=== PATIENT | female | born 1960 | race Caucasian/White ===

== ENCOUNTER 2018-03-19 19:09 | Emergency (ER) | payer OTHER ==
[2018-03-19 19:28] VITALS: BP 148/98
--- NOTE | 2018-03-19 19:41 | UC ---
Lower Extremity/Ankle HPI - HPI Summary HPI Summary: This patient is a 57 year old F presenting to [facility] with a chief complaint of R foot pain since 03/15/18. Patient reports she tripped over a chair leg. She reports the bruise that is there is fading but it is painful to ambulate. The CC is described as not improving since onset. The patient rates the pain 8/10 in severity. Symptoms aggravated by ambulation. Symptoms alleviated by nothing. 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 Onset/Duration: Sudden Onset, Lasting Days, Still Present Severity Initially: Severe Severity Currently: Severe Pain Intensity: 8 Pain Scale Used: 0-10 Numeric Aggravating Factor(s): Ambulation Alleviating Factor(s): Nothing Able to Bear Weight: Yes - able to ambulate but with pain - Allergies/Home Medications Allergies/Adverse Reactions: Allergies Allergy/AdvReac Type Severity Reaction Status Date / Time brown coating on Advil Allergy Eyes Uncoded 03/19/18 19:31 Itchy/Swollen/Red/Watery Home Medications: Home Medications NK [No Home Medications Reported] 03/19/18 [History Confirmed 03/19/18] PMH/Surg Hx/FS Hx/Imm Hx Endocrine History: Other Other Endocrine History: No DM Cancer History: Other Other Cancer History: No breast CA - Surgical History Surgical History: None - Family History Known Family History: Negative: Cardiac Disease, Hypertension, Diabetes - Social History Alcohol Use: Occasionally Substance Use Type: None Smoking Status (MU): Never Smoked Tobacco Review of Systems Skin: Bruising Musculoskeletal: Other: - R foot pain All Other Systems Reviewed And Are Negative: Yes Physical Exam - Summary Physical Exam Summary: VITAL SIGNS: Reviewed. GENERAL: Patient is a well-developed and nourished FEMALE who is lying comfortable in the stretcher. Patient is not in any acute respiratory distress. HEAD AND FACE: Normocephalic EYES: PERRLA, EOMI x 2. EARS: Hearing grossly intact. MOUTH: Oropharynx within normal limits. NECK: Supple, trachea is midline, no adenopathy, no JVD, no carotid bruit. CHEST: Symmetric, no tenderness at palpation LUNGS: Clear to auscultation bilaterally. No wheezing or crackles. CVS: Regular rate and rhythm, S1 and S2 present, no murmurs or gallops appreciated. ABDOMEN: Soft, non-tender. Bowel sounds are normal. No abdominal abnormal pulsations. EXTREMITIES: Full ROM in all major joints, no edema, no cyanosis or clubbing. Bruising in 2nd toe of the R foot. The patient is ambulating. NEURO: Alert and oriented x 3. No acute neurological deficits. Speech is normal and follows commands. SKIN: Dry and warm. Bruising in 2nd toe of the R foot. Triage Information Reviewed: Yes Vital Signs: Initial Vital Signs Temp 99.6 F 03/19/18 19:21 Pulse 85 03/19/18 19:21 Resp 16 03/19/18 19:21 BP 148/98 03/19/18 19:21 Pulse Ox 99 03/19/18 19:21 Vital Signs Reviewed: Yes Diagnostics - Radiology R foot XR Radiology Interpretation Completed By: ED Physician - No acute fracture. Pending radiologist official interpretation. Lower Extremity Course/Dx - Course Course Of Treatment: X-ray of the right foot impression: No acute fracture dislocation. The patient is ambulating with minimal discomfort. Patient was discharged home with follow-up with PCP. She was instructed that the x-ray will be reviewed by radiology and if there is any changes she will be call back. She will be taking ibuprofen or Tylenol for the pain. She is hemodynamically stable alert oriented 3. - Differential Dx/Diagnosis Provider Diagnoses: foot pain Discharge - Sign-Out/Discharge Documenting (check all that apply): Patient Departure All imaging exams completed and their final reports reviewed: Yes - Discharge Plan Condition: Stable Disposition: HOME Patient Education Materials: Arthralgia (ED) Referrals: Amanda Reyes MD [Primary Care Provider] - Additional Instructions: Take Acetaminophen or ibuprofen for pain or fever Increase your fluid intake Return to the or go to the emergency department if symptoms worsen Follow-up with primary care physician in next 2-3 days FOLLOW UP WITH YOUR PRIMARY CARE PROVIDER WITHIN ONE WEEK FOR HIGH BLOOD PRESSURE NOTED TODAY. - Billing Disposition and Condition Condition: STABLE Disposition: Home - Attestation Statements Document Initiated by Scribe: Yes Documenting Scribe: Ariel Prince Provider For Whom Scribe is Documenting (Include Credential): Campos Chisholm MD Scribe Attestation: Ariel Lion, scribed for Campos Chisholm MD on 03/19/18 at 2040. Scribe Documentation Reviewed: Yes Provider Attestation: The documentation as recorded by the scribe, Ariel Prince accurately reflects the service I personally performed and the decisions made by me, Campos Chisholm MD
--- NOTE | 2018-03-20 08:00 | RAD ---
HISTORY: foot pain, trauma COMPARISONS: None VIEWS: 3 , Frontal, lateral, and oblique views of the right foot FINDINGS: BONE DENSITY: Normal. BONES: There is no displaced fracture. There are calcaneal enthesophytes. JOINTS: There is moderate to advanced osteoarthritis of the first MTP joint and midfoot. ALIGNMENT: There is hallux valgus. SOFT TISSUES: Unremarkable. OTHER FINDINGS: None. IMPRESSION: OSTEOARTHRITIS. NO ACUTE OSSEOUS INJURY. IF SYMPTOMS PERSIST, RECOMMEND REPEAT IMAGING. R0
== END 2018-03-19 20:46 | disposition home or self-care (01) ==
LOC: UCEAST 19:09
DX: M79.671 Pain in right foot (principal)
CPT/HCPCS: 99212; G0463

== ENCOUNTER 2018-09-21 05:34 | Observation (INO) | payer OTHER ==
--- NOTE | 2018-09-14 12:37 | HP ---
HISTORY AND PHYSICAL: DATE OF ADMISSION/SURGERY: 09/21/18 DATE OF OFFICE VISIT: 09/13/18 SURGEON: Alka Nation MD* (dictated by JUAREZ Diop). PROCEDURE: Right total knee arthroplasty. CHIEF COMPLAINT: Right knee pain. HISTORY OF PRESENT ILLNESS: Ms. Prince is a 57-year-old female with end-stage osteoarthritis of the right knee. She has failed conservative treatment and elected to proceed with a right total knee arthroplasty. PAST MEDICAL HISTORY: Denies. PAST SURGICAL HISTORY: Denies. MEDICATIONS: Vitamin D3. ALLERGIES: No known drug allergies. FAMILY HISTORY: Hypertension. SOCIAL HISTORY: A 57-year-old, lives with her spouse. Does not smoke or use drugs or alcohol. REVIEW OF SYSTEMS: A complete 14-point review of systems was reviewed with the patient. It was all negative and noncontributory. She denies a history of DVT , PE, hepatitis, HIV, or anesthesia problems. PHYSICAL EXAMINATION GENERAL: She is well developed, well nourished, in no acute distress. VITAL SIGNS: She stands 64 inches tall, weighs 183 pounds. Blood pressure is 118/78, heart rate is 68. HEENT: Normocephalic, atraumatic. NECK: Supple, no palpable lymph nodes. PULMONARY: Lungs are clear to auscultation bilaterally. CARDIAC: Regular rate and rhythm. Strong S1, S2. ABDOMEN: Soft, nontender, nondistended. NEUROLOGICAL: She is alert and oriented x3. MUSCULOSKELETAL: Right lower extremity, the skin is intact. There are no open wounds or abrasions. Some tenderness over the medial and lateral joint lines. There is some moderate joint effusion. Range of motion is 15 to 120 degrees of flexion with patellofemoral crepitus. She has 2+ dorsalis pedis pulse. She is able to dorsiflex and plantarflex and has intact sensation. ASSESSMENT AND PLAN: Ms. Prince is a 57-year-old female with end-stage osteoarthritis of the right knee. She has failed conservative treatment and elected to proceed with a right total knee arthroplasty. The surgery is scheduled for 09/21/[address] Nation discussed the risks and benefits of the surgery at today's visit and all of her questions were answered. She will follow up with Dr. Nation 2 weeks after the surgery. JUAREZ DIOP [id number]/[facility] #: [id number] N[facility] MEMORIAL HOSPITALLalita
[~2018-09-21 05:34] MED LIST: Buffered Lidocaine 1% SYRIN* 1 ML/SYRINGE INTRADERM ONE; Tranexamic Acid 1,000 MG in NS 0.9% 50 ML* (outpatient use) IV SCH
[2018-09-21] MEDS ORDERED: Famotidine IV* 10 MG/ML 2 ML (20 mg) IV ONE (06:00)
[2018-09-21] MEDS ORDERED: Lactated Ringers 1000 ML Bag* 1,000 ML IV SCH (06:00)
[2018-09-21] MEDS ORDERED: Acetaminophen IV 1GM/100ML * 1,000 MG/100 ML VIAL IVPB ONE (06:00)
[2018-09-21] MEDS ORDERED: celeCOXIB CAP* 200 MG PO ONE (06:00)
[2018-09-21] MEDS ORDERED: Dexamethasone IV* 4 MG/ML 1 ML (4 MG) IV SLOW PU ONE (06:00)
[2018-09-21] MEDS ORDERED: Gabapentin CAP(*) 300 MG PO ONE (06:00)
[2018-09-21] MEDS ORDERED: Dexamethasone IV* 4 MG/ML 1 ML (4 MG) ONE (06:10)
[2018-09-21] MEDS ORDERED: Famotidine IV* 10 MG/ML 2 ML (20 mg) ONE (06:11)
[2018-09-21] MEDS ORDERED: celeCOXIB CAP* 100 MG ONE (06:11)
[2018-09-21] MEDS ORDERED: ceFAZolin 2 GM in NS PREMIX(*) 2 GM/100 ML BAG IVPB ONE (06:11)
[2018-09-21] MEDS ORDERED: Buffered Lidocaine 1% SYRIN* 1 ML/SYRINGE INTRADERM ONE (06:11)
[2018-09-21] MEDS ORDERED: Gabapentin CAP(*) 300 MG ONE (06:11)
[2018-09-21] MEDS ORDERED: Acetaminophen IV 1GM/100ML * 100 ML ONE ×2 (06:14→10:03)
[2018-09-21] MEDS ORDERED: ROPIVACAINE 5 MG/ML 30 ML BTL (0.5%) ONE ×2 (06:59→07:06)
[2018-09-21] MEDS ORDERED: Bupivacaine 0.5% SDV PF* 30ML VIAL ONE (07:09)
[2018-09-21] MEDS ORDERED: Phenylephrine 10 MG/ML VIAL* 1 ML VIAL ONE (07:09)
[2018-09-21] MEDS ORDERED: Midazolam* 1 MG/ML 5 ML VIAL (5 MG) ONE ×3 (07:11→10:52)
[2018-09-21] MEDS ORDERED: fentaNYL* 50 MCG/ML 2 ML VIAL (100 MCG VIAL) ONE (07:11)
[2018-09-21] MEDS ORDERED: KETAMINE HCL* 50 MG/ML 10 ML VIAL ONE (07:12)
[2018-09-21] MEDS ORDERED: fentaNYL* 50 MCG/ML 2 ML VIAL (100 MCG VIAL) IV PRN (08:12)
[2018-09-21] MEDS ORDERED: DiMENhydriNATE IV* 50 MG/ML VIAL IV PUSH PRN (08:12)
[2018-09-21] MEDS ORDERED: Ondansetron INJ* 2 MG/ML VIAL IV PRN ×2 (08:12→09:51)
[2018-09-21] MEDS ORDERED: Naloxone* 0.4 MG/ML 1 ML VIAL IV PRN (08:12)
[2018-09-21] MEDS ORDERED: HYDROmorphone INJ1* 1 MG/ML SYRINGE IV PRN (08:12)
[2018-09-21] MEDS ORDERED: Scopolamine 1.5 mg* PATCH TRANSDERM PRN (08:12)
[2018-09-21] MEDS ORDERED: Polyethylene Glycol 3350* 17 GM PACKET PO PRN (09:51)
[2018-09-21] MEDS ORDERED: Ondansetron TAB* 4 MG PO PRN (09:51)
[2018-09-21] MEDS ORDERED: oxyCODONE/Acetamin 5/325 MG* TAB PO PRN (09:51)
[2018-09-21] MEDS ORDERED: Morphine INJ* 2 MG/ML 1 ML SYRINGE (TWO MG - NEW SYRINGE VERSION) IV PRN (09:51)
[2018-09-21] MEDS ORDERED: Magnesium Hydroxide LIQ* 30 ML UDC PO PRN (09:51)
[2018-09-21] MEDS ORDERED: traMADol TAB* 50 MG PO PRN (09:51)
[2018-09-21] MEDS ORDERED: diPHENhydraMINE IV* 50 MG/ML 1 ml VIAL (BENADRYL) IV PRN (09:51)
[2018-09-21] MEDS ORDERED: Bisacodyl SUPP* 10 MG SUPP PR PRN (09:51)
--- NOTE | 2018-09-21 13:14 | PN ---
Progress Note - Progress Note Date of Service: 09/21/18 Note: patient resting comfortably with no complaints; able to wiggle toes/plantar flex , 2_+ DP pulse and intact sensation, dressing c/d/i
[2018-09-21] MEDS ORDERED: oxyCODONE TAB* 5 MG TAB ONE (14:03)
[2018-09-21] MEDS: oxyCODONE TAB* 5 MG TAB PO PRN ×2 (14:06→18:12)
[2018-09-21] MEDS: Lactated Ringers 1000 ML Bag* 1,000 ML IV SCH (14:41)
--- NOTE | 2018-09-21 16:55 | OP ---
Operative Report - Blank - Operative Report Date of Operation: 09/21/18 Note: NOEL HRUD 1960 Date of Surgery: 09/21/18 Alka Nation MD [employer] Architect: Alexandra PIZARRO did help throughout the procedure with preparation of the knee, wound retraction, manipulation of the knee, and wound closure. Anesthesiologist: Patricio JANG Anesthesia Type: Spinal Preoperative Diagnosis: Right severe degenerative osteoarthritis of the knee Postoperative Diagnosis: As above Procedure Performed: Right Total Knee Arthroplasty Tourniquet time: 44 minutes Complications: None Specimen: Bone and cartilage from the right knee joint sent to pathology. Hardware Used: Cemented [employer]hew total knee hardware was used - For the femur a size 6 narrow oxinium legion posterior stabilized femoral component, for the tibia a size 5 right ronda II tibial baseplate, for the insert a size 9 mm 5-6 posterior stabilized articular polyethylene insert, and for the patella a size 32 3-peg all poly patella. Brief History/Indication: NOEL HURD was known in clinic and had a history of severe right knee pain and swelling. She failed conservative treatment with anti -inflammatories, pain pills, intra-articular injections and physical therapy. She elected to undergo right total knee arthroplasty due to continued pain and decreased quality of life. Radiographs showed severe end stage osteoarthritis of the knee with bone on bone contact. Informed consent was obtained from the patient. She understood the risks of surgery included but were not limited to: bleeding, infection, damage to nearby structures, intraoperative fracture, nerve palsy, failure of the hardware, early loosening, knee stiffness or loss of motion, anesthesia complications, stroke, heart attack, blood clot and . She wished to proceed. Intra-Operative Findings: Intraoperatively the patient was noted to have severe loss of cartilage in all 3 compartments of the knee. Description of the Procedure: NOEL HURD was identified in the preanesthesia unit. Her right knee was marked as the correct operative side. Informed consent was signed and placed in the chart. The patient was taken to the operating room and placed under anesthesia without complication. A degroot catheter was placed. A tourniquet was placed on the right thigh. The right lower extremity was prepped and draped in the usual sterile fashion. Preoperative time-out was made to correctly identify the patient, side and site. Appropriate intraoperative antibiotics were given within one hour of incision. Tourniquet was inflated. A midline incision was made and carried sharply down to the extensor mechanism. A new 10 blade was used to make a standard medial parapatellar arthrotomy. The patella was subluxed laterally. Electrocautery was used to dissect soft tissue off the superomedial tibia to the midsagittal plane. The knee was flexed up. The anterior horn of the lateral meniscus and the ACL were sharply incised. A drill was used to enter the distal femur. The intramedullary distal femoral cutting guide was pinned on the distal femur. The oscillating saw was used to make the distal femoral cut. The external rotation guide was pinned on the distal femur and the distal femur was sized to a size 6. The size 6 multi-cutting jig was pinned on the distal femur. The oscillating saw was used to make the appropriate 4 chamfer cuts. Next the PCL was completely released. The extramedullary tibial cutting guide was pinned on the proximal tibia and the oscillating saw was used to make the proximal tibial cut perpendicular to the mechanical axis of the tibia. The bone was carefully removed. The knee was brought out into full extension. The spacer block was placed and had excellent fit with the knee in full extension. The medial and lateral ligaments were well balanced. The flexion and extension gaps were well balanced. The knee was flexed up. Lamina floor layer tile was placed both medially and laterally. Any remaining meniscus was removed with electrocautery. Curved osteotome was used to remove any posterior osteophytes. The tibial tray and drop fabiola were placed and confirmed a satisfactory tibial cut. The size 6 right narrow femoral trial was impacted onto the distal femur. This trial had excellent fit and stability. The box for the posterior stabilized implant was prepared using a box cut osteotome and a reamer. Next a tibial tray trial and 9 mm insert trial was placed. The knee was taken through a range of motion and had full extension to 130 degrees of flexion. Patellofemoral tracking was satisfactory. The patella was inverted and sized to a size 32. Three peg holes were drilled through the size 32 drill guide. The trial patella was placed and the knee was taken through a range of motion. There was satisfactory patellofemoral tracking. All trials were removed. The tibia was subluxed anteriorly and sized to a size 5. The proximal tibial was prepared with a size 5 keel punch. All bony cut surfaces were irrigated with sterile saline and dried. Final implants were cemented into place starting with the tibia, followed by the femur, and last the patella. A 9 mm insert trial was placed and the knee was brought into full extension. Tourniquet was turned down and the knee was copiously irrigated with sterile saline. Electrocautery was used to obtain meticulous hemostasis. Once the cement had fully cured, the insert trial was removed. Any excess cement was removed from around the hardware and capsule. Final insert chosen was a 9 mm posterior stabilized Ronda II articular insert size 5-6. Stability of the insert was checked and noted to be stable. The extensor mechanism was closed using number 1 vicryls. The rest of the incision was closed in a layered fashion using 0 and 2-0 vicryls. The skin was closed using 3-0 nylon suture. Sterile xeroform, 4x4s and webril were used to cover the incision. Conner wrap and cold pack were used to cover the dressings. The patients anesthesia was reversed without difficulty. She was taken to the PACU in stable condition. Intended weight-bearing will be as tolerated.
[2018-09-21] MEDS: ceFAZolin 1 GM ADVAN(*) 1 GM in NS 0.9% 50 ML* 50 ML IVPB SCH (17:25)
[2018-09-21] MEDS: oxyCODONE/Acetamin 5/325 MG* TAB PO PRN (20:59)
[2018-09-21] MEDS: Cyclobenzaprine TAB* 10 MG PO PRN (21:00)
[2018-09-21] MEDS: Docusate CAP* 100 MG PO SCH ×2 (21:04→21:07)
[2018-09-21] MEDS: Magnesium Hydroxide LIQ* 30 ML UDC PO SCH (21:05)
[2018-09-21] MEDS: Acetaminophen TAB* 325 MG PO SCH (22:52)
[2018-09-22] MEDS: oxyCODONE TAB* 5 MG TAB PO PRN ×3 (00:24→14:49)
[2018-09-22] MEDS: Lactated Ringers 1000 ML Bag* 1,000 ML IV SCH (00:25)
[2018-09-22] MEDS: ceFAZolin 1 GM ADVAN(*) 1 GM in NS 0.9% 50 ML* 50 ML IVPB SCH ×2 (00:28→07:31)
[2018-09-22] MEDS: oxyCODONE/Acetamin 5/325 MG* TAB PO PRN ×2 (04:08→11:23)
[2018-09-22] MEDS: Cyclobenzaprine TAB* 10 MG PO PRN (04:09)
[2018-09-22] MEDS: Acetaminophen TAB* 325 MG PO SCH ×2 (06:36→13:25)
[2018-09-22 07:04] LABS: Hematocrit 40 % (33-41); Hemoglobin 13.7 g/dL (12.0-16.0); Mean Platelet Volume 8.4 fL (7.4-10.4); Platelet Count 186 10^3/uL (150-450)
[2018-09-22 07:19] LABS: BUN/Creatinine Ratio 12.1 (8-20); EGFR African American 112.1 (>60); EGFR Non-African American 92.6 (>60); Potassium 3.8 mmol/L (3.5-5.0)
[2018-09-22] MEDS: Magnesium Hydroxide LIQ* 30 ML UDC PO SCH (08:40)
[2018-09-22] MEDS: Docusate CAP* 100 MG PO SCH (08:42)
[2018-09-22] MEDS ORDERED: Apixaban* 2.5 MG TAB PO SCH (09:00)
--- NOTE | 2018-09-22 10:34 | PN ---
Progress Note - Progress Note Date of Service: 09/22/18 SOAP: Subjective: []Pt seen and examined at bedside. She feels very well and desires DC home. Denies CP, SOB, dizziness, nausea. Objective: []Gereral: Well appearing, NAD RLE: Right knee dressing changed, incision CDI without erythema or discharge, thigh is soft, DP2+, DF/PF intact Calves supple and nontender without erythema, edema or palpable cords Assessment: []POD 1 sp RTK Plan: []WBAT PT/OT eliquis 2.5 mg po BID for 30 days post op Anticipate DC home today as long as patient meets goals with PT Vital Signs Temp 98.9 F 09/22/18 07:20 Pulse 76 09/22/18 07:20 Resp 18 09/22/18 08:00 BP 117/73 09/22/18 07:20 Pulse Ox 98 09/22/18 08:00 Intake & Output 09/21/18 09/22/18 09/22/18 18:59 06:59 18:59 Intake Total 2655 2009 320 Output Total 1999 2099 Balance 655 -90 320 Intake: IV Fluids 2200 1060 ABX - CEFAZOLIN 110 LR 2100 950 NS 100ML, Cefazolin 2G 100 IVPB 55 ABX - CEFAZOLIN 55 Oral 400 950 320 Output: See 1999 2100 Other: # Bowel Movements 0 Laboratory Last Values Hgb 13.7 g/dL (12.0-16.0) 09/22/18 06:27 Hct 40 % (33-41) 09/22/18 06:27 Plt Count 186 10^3/uL (150-450) 09/22/18 06:27 MPV 8.4 fL (7.4-10.4) 09/22/18 06:27 Sodium 138 mmol/L (135-145) 09/22/18 06:27 Potassium 3.8 mmol/L (3.5-5.0) 09/22/18 06:27 Chloride 104 mmol/L (101-111) 09/22/18 06:27 Carbon Dioxide 30 mmol/L (22-32) 09/22/18 06:27 Anion Gap 4 mmol/L (2-11) 09/22/18 06:27 BUN 8 mg/dL (6-24) 09/22/18 06:27 Creatinine 0.66 mg/dL (0.51-0.95) 09/22/18 06:27 Est GFR ( Amer) 112.1 (>60) 09/22/18 06:27 Est GFR (Non-Af Amer) 92.6 (>60) 09/22/18 06:27 BUN/Creatinine Ratio 12.1 (8-20) 09/22/18 06:27 Glucose 135 mg/dL (70-100) H 09/22/18 06:27 Calcium 9.0 mg/dL (8.6-10.3) 09/22/18 06:27
--- NOTE | 2018-09-22 10:59 | DS ---
Orthopedic Discharge Summary - Discharge Summary Date of Admission:09/21/18 Date of Discharge: 09/22/18 Date of Surgery: 09/21/18 Attending Orthopedic Provider: Dr Nation Pre-operative Diagnosis: right knee osteoarthritis Operative Procedure: right total knee arthroplasty Condition of Patient: stable History: NOEL HURD is a 57 year old F with years of increasingly severe right knee pain. Patient has failed conservative management and has elected to undergo a right total knee replacement Hospital Course: NOEL was admitted to [facility] on 09/21/18. Patient underwent a right total knee replacement without complication followed by a brief recovery in PACU and transfer to the Short Stay Surgical Unit in stable condition. Our hospitalist service, physical therapy and occupational therapy also participated in this patients care. Post-op day 1: patient was alert and in no acute distress. Dressing and incision was clean, dry and intact. Operative extremity dorsiflexion and plantarflexion intact, sensation intact to light touch distally, DP2+. Physical therapy goals were met. Stable for DC home. Discharge Medications Medication Instructions Recorded Confirmed Type Acetaminophen TAB* [Tylenol TAB*] 975 mg PO Q8HR tab 09/22/18 Rx Apixaban* [Eliquis*] 2.5 mg PO BID #60 tab 09/22/18 Rx Docusate CAP* [Colace Cap*] 100 mg PO BID #90 cap 09/22/18 Rx oxyCODONE/Acetamin 5/325 MG* 2 tab PO Q4H PRN #70 tab MDD 10 09/22/18 Rx [Percocet 5/325 TAB*] Discharge to home in stable condition 09/22/18 Discharge Instructions following Orthopedic Surgery: Activity: * Weight Bearing as tolerated * Continue physical therapy and occupational therapy exercises as shown * start outpatient PT Wound care: * OK to shower on post-op day 3, no bathing, swimming, or submerging wound. * Use gentle soap, pat dry. Cover with gauze, RAMOS wrap or tape. Call Orthopedic office for: * Increased drainage * Redness * Increased pain * Fever Go to ER with shortness of breath or chest pain. Diet: * Regular diet * Increase fluids and fiber to prevent constipation. * Continue to use stool softeners, call office if no bowel motion within 48 hours. Medications See Home Medication List in your packet for medications that you should take after discharge. DVT Prophylaxis: Eliquis Dosin.5 mg, 1 tab every 12 hours x 30 days. This medication increases bleeding tendency Pain Control: Percocet Dosin/325 mg 1-2 tabs by mouth every 4-6 hours as needed for pain. Maximum of 10 tabs per day. Wean off as soon as pain allows. hold for sedation Please note that Percocet contains Tylenol (acetaminophen). Maximum daily dose of Tylenol is 4000 mg from all sources. Antibiotics are required prior to any dental work. FOLLOW UP: Follow up with [Rios] Within 10-14 days, call for appointment Please call our office with any questions or concerns ([phone])
[2018-09-22 12:28] VITALS: BP 153/78
== END 2018-09-22 15:30 | disposition home or self-care (01) ==
LOC: OR 05:34 → EDSTATUS 07:30 → SSU 09:51
PROVIDERS: ADMIT Orthopaedic Surgery Adult Reconstructive Orthopaedic Surgery; ATTEND Orthopaedic Surgery Adult Reconstructive Orthopaedic Surgery
DX: M17.11 Unilateral primary osteoarthritis, right knee (principal)
CPT/HCPCS: 36415; 80048; 85014; 85018; 85049; 88305; 88311; 96374; 96375; A9270-GY; C1776; G0378; J0690; J1100; J2250; J2795; J3010; J3490

== ENCOUNTER 2019-09-19 17:20 | Emergency (ER) | payer OTHER ==
--- OUTSIDE RECORDS SUMMARY | 2019-09-19 17:25 | XMS REPORT | Continuity of Care Document ---
:1960 External Reference #:[id number] Author Name Amanda Jeff MD (transmitted by agent of provider Nikky Pisano) Address [address] , [place] [address] Care Team Providers Name Role Phone Amanda Jeff MD - Family Medicine Care Team Information Biology Manager Problems Active Problems Provider Date Localized, primary osteoarthritis Alka Nation M.D. Onset: 05/18/2019 Acquired genu valgum Alka Nation M.D. Onset: 05/18/2019 History of total knee arthroplasty Onset: 02/10/2019 Postmenopausal bleeding Onset: 10/30/2017 Note: LMP 05/15, 4 days of VB 2017, had negative endometrial biopsy Dr Prince 2017. No bleeding since. Genetic counseling Onset: 08/03/2017 Gluten sensitivity Onset: 06/09/2017 Obesity Onset: 01/28/2017 Metabolic syndrome X Onset: 11/10/2016 Seasonal affective disorder Onset: 10/07/2016 Hereditary essential tremor Onset: 10/07/2016 Vitamin D deficiency Onset: 01/31/2016 Hyperlipidemia Onset: 06/05/2015 Osteoarthritis of knee Onset: 06/05/2015 Generalized anxiety disorder Onset: 06/01/2012 Perimenopausal disorder Onset: 06/01/2010 depression Onset: 06/01/2000 Closed fracture of patella Alka Nation M.D. Onset: 06/13/2019 Social History Type Date Description Comments Sex Unknown Tobacco Use Start: Unknown Never Smoked Cigarettes Smoking Status Reviewed: 08/10/19 Never Smoked Cigarettes ETOH Use Rarely consumes alcohol Tobacco Use Start: Unknown Patient has never smoked Exercise Type/Frequency Exercises regularly Guns in Home No Allergies, Adverse Reactions, Alerts Description No Known Drug Allergies Medications Active Medications SIG Qnty Indications Ordering Provider Date Amoxicillin take 4 pills, 2 g 4caps Z47.1 Alka Nation, 11/01/2018 500mg 1 hour before M.D. Capsules dental or gi procedure Vitamin D3 one every daily Unknown 5000Unit Capsules Tylenol 2 by mouth every 6 Unknown 325mg Tablets hours as needed pain Aleve as directed Unknown 220mg Tablets Naproxen Sodium prn for joint Unknown 220mg pain, takes it Tablets rarely Medications Administered in Office Medication SIG Qnty Indications Ordering Provider Date DTaP,Unspecified Unknown 03/01/2006 Injection Immunizations CPT Code Status Date Vaccine Lot # [id number] Given 03/01/2019 Influenza Virus Vaccine, Quadrivalent, Split, Preservative Free 58538 Given 04/11/2017 Influenza Virus Vaccine, Quadrivalent, Split, Im Use 6-35mo [id number] Given 07/09/2016 Tdap - Tetanus/Diptheria/Acellular Pertussis 53613 Given 03/01/2015 Flu Vaccine Vital Signs Date Vital Result Comment 08/10/2019 10:26am Height 64 inches 5'4" Weight 195.00 lb Heart Rate 87 /min BP Systolic 150 mmHg BP Diastolic 85 mmHg Body Temperature 98.3 F O2 % BldC Oximetry 98 % BMI (Body Mass Index) 33.5 kg/m2 06/13/2019 9:54am Height 64 inches 5'4" Weight 190.00 lb Heart Rate 120 /min BP Systolic 120 mmHg BP Diastolic 81 mmHg Body Temperature 97.9 F Pain Level 0 BMI (Body Mass Index) 32.6 kg/m2 Results Test Acquired Date Facility Test Result H/L Range Note Basic Metabolic 07/02/2019 [facility] Sodium 140 mmol/L Normal 135-145 1 [address] [place] [address] [phone] Potassium 4.1 mmol/L Normal 3.5-5.0 Chloride 106 mmol/L Normal 101-111 Co2 Carbon Dioxide 29 mmol/L Normal 22-32 Anion Gap 5 mmol/L Normal 2-11 Glucose 106 mg/dL High 70-100 Blood Urea Nitrogen 11 mg/dL Normal 6-24 Creatinine 0.69 mg/dL Normal 0.51-0.95 BUN/Creatinine Ratio 15.9 Normal 8-20 Calcium 8.9 mg/dL Normal 8.6-10.3 Egfr Non- 87.7 >60 Egfr 106.1 >60 2 Lipid Profile 07/02/2019 [facility] Triglycerides 134 mg/dL 3 (Trig/Chol/HDL) [address] [place] [address] [phone] Cholesterol 138 mg/dL 4 HDL Cholesterol 38.0 mg/dL 5 LDL Cholesterol 73 mg/dL 6 Laboratory test 07/02/2019 [facility] Hemoglobin A1c 5.7 % High 4.0-5.6 [address] (Glyco HGB) [place] [address] [phone] 1 FASTING 2 Because ethnic data is not always readily available, this report includes an eGFR for both -Americans and non- Americans. The National Kidney Disease Education Program (NKDEP) does not endorse the use of the MDRD equation for patients that are not between the ages of 18 and 70, are , have extremes of body size, muscle mass, or nutritional status, or are non- or non-. According to the National Kidney Foundation, irrespective of diagnosis, the stage of the disease is based on the level of kidney function: Stage Description GFR(mL/min/1.73 m(2)) 1 Kidney damage with normal or decreased GFR 90 2 Kidney damage with mild decrease in GFR 60-89 3 Moderate decrease in GFR 30-59 4 Severe decrease in GFR 15-29 5 Kidney failure <15 (or dialysis) 3 Desirable: <150 Borderline High: 150-199 High: 200-499 Very High: >500 4 Desirable: <200 Borderline High: 200-239 High: >239 5 Low: <40 Desirable: 40-60 High: >60 6 Desirable: <100 Near Optimal: 100-129 Borderline High: 130-159 High: 160-189 Very High: >189 7 Therapeutic target for the treatment of diabetes mellitus patients is <7% HBA1C, and in selective patients <6.0%. Please refer to [place] [employer] diabetic care guidelines for further information. Procedures Date Code Description Status 12/03/2018 [id number] Mammogram Completed 11/24/2012 [id number] Colonoscopy Completed Medical Devices Description No Information Available Encounters Type Date Location Provider Dx Diagnosis Office Visit 08/10/2019 [facility] Amanda Jeff MD Z00.00 Encntr for general 10:30a Clinic of [facility] adult medical exam w/o abnormal findings M17.12 Unilateral primary osteoarthritis, left knee Z96.651 Presence of right artificial knee joint R73.01 Impaired fasting glucose F32.9 Major depressive disorder, single episode, unspecified Office Visit 06/13/2019 9:45a [facility] Alka Nation, S82.002D Unsp fracture at [place] M.D. of left patella, subs for clos fx w routn heal W01.0xxD Fall same lev from slip/trip w/o strike against object, subs M25.562 Pain in left knee M25.462 Effusion, left knee M17.12 Unilateral primary osteoarthritis, left knee S80.02xD Contusion of left knee, subsequent encounter Office Visit 05/18/2019 8:15a [facility] Alka Nation, M25.562 Pain in left at [place] M.D. knee M25.462 Effusion, left knee M25.562 Pain in left knee S80.02xA Contusion of left knee, initial encounter W01.0xxA Fall same lev from slip/trip w/o strike against object, init M25.462 Effusion, left knee M17.12 Unilateral primary osteoarthritis, left knee M17.12 Unilateral primary osteoarthritis, left knee M21.062 Valgus deformity, not elsewhere classified, left knee S82.002A Unsp fracture of left patella, init for clos fx W19.xxxA Unspecified fall, initial encounter Assessments Date Code Description Provider 08/10/2019 Z00.00 Adult health examination Amanda Jeff MD 08/10/2019 M17.12 Unilateral primary osteoarthritis, left knee Amanda Jeff MD 08/10/2019 Z96.651 Presence of right artificial knee joint Amanda Jeff MD 08/10/2019 R73.01 Impaired fasting glycaemia Amanda Jeff MD 08/10/2019 F32.9 Reactive depression (situational) Amanda Jeff MD 06/13/2019 S82.002D Unspecified fracture of left patella, Alka Nation M.D. subsequent encounter for closed fracture with routine healing 06/13/2019 W01.0xxD Fall on same level from slipping, tripping and Alka Nation M.D. stumbling without subsequent striking against object, subsequent encounter 06/13/2019 M25.562 Pain in left knee Alka Nation M.D. 06/13/2019 M25.462 Effusion, left knee Alka Nation M.D. 06/13/2019 M17.12 Unilateral primary osteoarthritis, left knee Alka Nation M.D. 06/13/2019 S80.02xD Contusion of left knee, subsequent encounter Alka Nation M.D. 05/18/2019 M25.562 Pain in left knee Alka Nation M.D. 05/18/2019 M25.462 Effusion, left knee Alka Nation M.D. 05/18/2019 M25.562 Pain in left knee Alka Nation M.D. 05/18/2019 S80.02xA Contusion of left knee, initial encounter Alka Nation M.D. 05/18/2019 W01.0xxA Fall on same level from slipping, tripping and Alka Nation M.D. stumbling without subsequent striking against object, initial encounter 05/18/2019 M25.462 Effusion, left knee Alka Nation M.D. 05/18/2019 M17.12 Unilateral primary osteoarthritis, left knee Alka Nation M.D. 05/18/2019 M17.12 Unilateral primary osteoarthritis, left knee Alka Nation M.D. 05/18/2019 M21.062 Valgus deformity, not elsewhere classified, Alka Nation M.D. left knee 05/18/2019 S82.002A Unspecified fracture of left patella, initial Alka Nation M.D. encounter for closed fracture 05/18/2019 W19.xxxA Unspecified fall, initial encounter Alka Nation M.D. Plan of Treatment Future Appointment(s):02/13/2020 8:30 am - Amanda Jeff MD at [facility]08/29/2019 8:15 am - Alka Nation M.D. at [facility]08/10/2019 - Amanda Jeff MDZ00.00 Adult health examinationComments: Adult health examination:Diet: discussed healthy diet, which should include primary whole foods and plants.Exercise: discussed guidelines and recommended at least 150 minutes of aerobic exercise per week, can be broken up into smaller increments, and the importance of strength training at least twice a week. She will resume soon. Immunizations: reviewed, she is UTDBreast cancer screening: reviewed NIH guidelines which suggests every other year mammograms beginning at age 50 for average risk women; will do every other year, I recommend SBE on a regular basis, due in olon cancer screening: discussed options for women at average risk beginning at age 50, options include Cologuard or colonoscopy,up to dateCervical cancer screening: discussed guidelines for women at average risk; between ages 30 and 64 women at low risk may have pap and HPV testing every five years, she is UTD and pap smear is not necessary at this time. Advanced directives: discussed with patient living will and health care proxy,she has informationLabs: reviewedRecheck in 5 months then 6 m f/uFollow up:f/u in 6 months, labs in advance also f/u in 1 year for blpcupV66.12 Unilateral primary osteoarthritis, left kneeComments:no current pain but plans left knee replacement in ndqfuoX27.651 Presence of right artificial knee jointComments:doing wellR73.01 Impaired fasting glycaemiaComments:reviewed labs and HA1C better last time we checked, will keep an eye on it and recheck in 5 xvybrwO52.9 Reactive depression (situational) Comments:doing ok under circumstances, has appt for FSAP at [place], she has support from friends and her 's care is being well managed.She has been approved for FMLA for 6 months. Functional Status Description No Information Available Mental Status Description No Information Available Referrals Description No Information Available
--- OUTSIDE RECORDS SUMMARY | 2019-09-19 17:25 | XMS REPORT | Continuity of Care Document ---
:1960 External Reference #:[id number] Author Name Alka Nation M.D. Address [address] [place] [address] [place] [address] Care Team Providers Name Role Phone Amanda Jeff MD - Family Medicine Care Team Information Medical Claims Examiner [phone] Problems Active Problems Provider Date Localized, primary [...] Unknown Never Smoked Cigarettes Smoking Status Reviewed: 09/19/19 Never Smoked Cigarettes ETOH Use Rarely consumes [...] CPT Code Status Date Vaccine Lot # [id number] Given 03/01/2019 Influenza Virus Vaccine, Quadrivalent, Split, Preservative Free 07277 Given 04/11/2017 Influenza Virus Vaccine, Quadrivalent, Split, Im Use 6-35mo 97812 Given 07/09/2016 Tdap - Tetanus/Diptheria/Acellular Pertussis 44665 Given 03/01/2015 Flu Vaccine Vital Signs Date [...] Result H/L Range Note Basic Metabolic 07/02/2019 [facility] Sodium 140 mmol/L Normal 135-145 1 [address] [place] [address] [phone] Potassium 4.1 mmol/L Normal 3.5-5.0 Chloride 106 mmol/L Normal 101-111 Co2 Carbon Dioxide 29 mmol/L Normal 22-32 Anion Gap 5 mmol/L Normal 2-11 Glucose 106 mg/dL High 70-100 Blood Urea Nitrogen 11 mg/dL Normal 6-24 Creatinine 0.69 mg/dL Normal 0.51-0.95 BUN/Creatinine Ratio 15.9 Normal 8-20 Calcium 8.9 mg/dL Normal 8.6-10.3 Egfr Non- 87.7 >60 Egfr 106.1 >60 2 Lipid Profile 07/02/2019 [facility] Triglycerides 134 mg/dL 3 (Trig/Chol/HDL) [address] [place] [address] [phone] Cholesterol 138 mg/dL 4 HDL Cholesterol 38.0 mg/dL 5 LDL Cholesterol 73 mg/dL 6 Laboratory test 07/02/2019 [facility] Hemoglobin A1c 5.7 % High 4.0-5.6 [address] (Glyco HGB) [place] [address] [phone] 1 FASTING 2 Because ethnic data is [...] in selective patients <6.0%. Please refer to [place] [employer] diabetic care guidelines for further information. Procedures Date Code Description Status 12/03/2018 [id number] Mammogram Completed 11/24/2012 [id number] Colonoscopy Completed Medical Devices Description No Information Available Encounters Type Date Location Provider Dx Diagnosis Office Visit 09/19/2019 [facility] Alka Nation, M25.562 Pain in left knee 8:15a at [place] M.D. S82.002D Unsp fracture of left patella, subs for clos fx w routn heal W01.0xxD Fall same lev from slip/trip w/o strike against object, subs M25.462 Effusion, left knee M17.12 Unilateral primary osteoarthritis, left knee Office Visit 08/10/2019 10:30a [facility] Amanda Jeff MD Z00.00 Encntr for Clinic [facility] general adult medical exam w/o abnormal findings M17.12 Unilateral primary osteoarthritis, left knee Z96.651 Presence of right artificial knee joint R73.01 Impaired fasting glucose F32.9 Major depressive disorder, single episode, unspecified Office Visit 06/13/2019 9:45a [facility] Alka Nation, S82.002D Unsp fracture at [place] M.D. of left patella, subs for clos fx w routn heal W01.0xxD Fall same lev from slip/trip w/o strike against object, subs M25.562 Pain in left knee M25.462 Effusion, left knee M17.12 Unilateral primary osteoarthritis, left knee S80.02xD Contusion of left knee, subsequent encounter Office Visit 05/18/2019 8:15a [facility] Alka Nation, M25.562 Pain in left at [place] M.D. knee M25.462 Effusion, left knee M25.562 [...] initial encounter Assessments Date Code Description Provider 09/19/2019 M25.562 Pain in left knee Alka Nation M.D. 09/19/2019 S82.002D Unspecified fracture of left patella, Alka Nation M.D. subsequent encounter for closed fracture with routine healing 09/19/2019 W01.0xxD Fall on same level from slipping, tripping and Alka Nation M.D. stumbling without subsequent striking against object, subsequent encounter 09/19/2019 M25.462 Effusion, left knee Alka Nation M.D. 09/19/2019 M17.12 Unilateral primary osteoarthritis, left knee Alka Nation M.D. 09/16/2019 Z96.651 Presence of right artificial knee joint Alka Nation M.D. 08/10/2019 Z00.00 Adult health examination Amanda Jeff [...] 8:30 am - [facility]09[facility]2019 - Alka Nation M.D.M25.562 Pain in left kneeS82.002D Unspecified fracture of left patella, subsequent encounter for closed fracture with routinehealingFollow up:Follow up: 6 weeks for xray left ybyxohxF16.0xxD Fall on same level from slipping, tripping and stumbling without subsequent striking against object, subsequent silbdhyfmN88.462 Effusion, left kneeM17.12 Unilateral primary osteoarthritis, left kneeM25.562 Pain in left kneeS82.002D Unspecified fracture of left patella, subsequent encounter for closed fracture with routinehealingFollow up:Follow up: 6 weeks for xray left niofjfhC52.0xxD Fall on same level from slipping, tripping and stumbling without subsequent striking against object, subsequent ywequnfxjJ79.462 Effusion, left kneeM17.12 Unilateral primary osteoarthritis, left knee Functional Status Description No Information Available Mental Status Description No Information Available Referrals Description No Information Available
--- OUTSIDE RECORDS SUMMARY | 2019-09-19 17:25 | XMS REPORT | Continuity of Care Document ---
:1960 External Reference #:[id number] Author Name Alka Nation M.D. (transmitted by agent of provider Alexandra Templeton) Address [address] [place] [address] [place] [address] Care Team Providers Name Role Phone Amanda Jeff MD - Family Medicine Care Team Information Form Builder Problems Active Problems Provider Date Localized, primary osteoarthritis Alka Nation M.D. Onset: 05/18/2019 Acquired genu valgum Alka Nation M.D. Onset: 05/18/2019 History of total knee arthroplasty Onset: 02/10/2019 Postmenopausal bleeding Onset: 10/30/2017 Note: LMP 12, 4 days of VB 2017, had negative [...] Unknown Never Smoked Cigarettes Smoking Status Reviewed: 09/16/19 Never Smoked Cigarettes ETOH Use Rarely consumes alcohol Tobacco Use Start: Unknown Patient has never smoked Exercise Type/Frequency Exercises regularly Guns in Home No Allergies, Adverse Reactions, Alerts Description No Known Drug Allergies Medications Active Medications SIG Qnty Indications Ordering Provider Date Amoxicillin take 4 pills, 2 g 4caps Z47.1 Alka Rios, 11/01/2018 500mg 1 hour before M.D. Capsules [...] CPT Code Status Date Vaccine Lot # [id number] Given 03/01/2019 Influenza Virus Vaccine, Quadrivalent, Split, Preservative Free 26523 Given 04/11/2017 Influenza Virus Vaccine, Quadrivalent, Split, Im Use 6-35mo [id number] Given 07/09/2016 Tdap - Tetanus/Diptheria/Acellular Pertussis 60192 Given 03/01/2015 Flu Vaccine Vital Signs Date [...] Result H/L Range Note Basic Metabolic 07/02/2019 [facility] Sodium 140 mmol/L Normal 135-145 1 Panel [address] [place] [address] [phone] Potassium 4.1 mmol/L Normal 3.5-5.0 Chloride 106 mmol/L Normal 101-111 Co2 Carbon Dioxide 29 mmol/L Normal 22-32 Anion Gap 5 mmol/L Normal 2-11 Glucose 106 mg/dL High 70-100 Blood Urea Nitrogen 11 mg/dL Normal 6-24 Creatinine 0.69 mg/dL Normal 0.51-0.95 BUN/Creatinine Ratio 15.9 Normal 8-20 Calcium 8.9 mg/dL Normal 8.6-10.3 Egfr Non- 87.7 >60 Egfr 106.1 >60 2 Lipid Profile 07/02/2019 [facility] Triglycerides 134 mg/dL 3 (Trig/Chol/HDL) [address] [place] [address] [phone] Cholesterol 138 mg/dL 4 HDL Cholesterol 38.0 mg/dL 5 LDL Cholesterol 73 mg/dL 6 Laboratory test 07/02/2019 [facility] Hemoglobin A1c 5.7 % High 4.0-5.6 [address] (Glyco HGB) [place] [address] [phone] 1 FASTING 2 Because ethnic data is [...] in selective patients <6.0%. Please refer to [place] [employer] diabetic care guidelines for further information. Procedures Date Code Description Status 12/03/2018 [id number] Mammogram Completed 11/24/2012 [id number] Colonoscopy Completed Medical Devices Description No Information Available Encounters Type Date Location Provider Dx Diagnosis Office Visit 08/10/2019 [facility] Amanda Jeff MD Z00.00 Encntr for general 10:30a Clinic of [facility] adult medical exam w/o abnormal findings M17.12 Unilateral primary osteoarthritis, left knee Z96.651 Presence of right artificial knee joint R73.01 Impaired fasting glucose F32.9 Major depressive disorder, single episode, unspecified Office Visit 06/13/2019 9:45a [facility] Alka Nation, S82.002D Unsp fracture at [place] M.D. of left patella, subs for clos fx w routn heal W01.0xxD Fall same lev from slip/trip w/o strike against object, subs M25.562 Pain in left knee M25.462 Effusion, left knee M17.12 Unilateral primary osteoarthritis, left knee S80.02xD Contusion of left knee, subsequent encounter Office Visit 05/18/2019 8:15a [facility] Alka Nation, M25.562 Pain in left at [place] M.D. knee M25.462 Effusion, left knee M25.562 [...] Alka Nation M.D. Plan of Treatment Future Appointment(s):09/19/2019 8:15 am - Alka Nation M.D. at [facility]02/13/2020 8:30 am - Amanda Jeff MD at [facility] Functional Status Description No Information Available Mental Status Description No Information Available Referrals Description No Information Available
[2019-09-19 17:45] VITALS: BP 150/88
--- NOTE | 2019-09-19 17:49 | UC ---
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 Nausea during the night, but not vomiting. Also has bloating in abdomen. Has appendix. 58 yo female c/o abd pain since apprx 1am today. Pain woke her from sleep. Worse b/n 1-4am, better now but still hurts a lot. No n/v/d. Has felt constipated over the last month. Had bm x 4 today, no blood / melena (does have hx hemorrhoids). No urinary sx. No rash. No fever / chills. No sob /cp / palpitations. No back pain. No hx gi / gu surgery. - History of Current Complaint Chief Complaint: UCAbdominalPain Stated Complaint: ABDOMINAL PAIN Time Seen by Provider: 09/19/19 17:48 Hx Obtained From: Patient Hx Last Menstrual Period: postmenapausal Pain Intensity: 5 - Allergy/Home Medications Allergies/Adverse Reactions: Allergies Allergy/AdvReac Type Severity Reaction Status Date / Time ibuprofen [From Advil] Allergy Intermediate Eyes Verified 09/19/19 17:38 Itchy/Swollen/Red/Watery Home Medications: Home Medications Acetaminophen TAB* [Tylenol TAB*] 975 mg PO Q8HR tab 09/22/18 [Rx Confirmed ] Docusate CAP* [Colace Cap*] 100 mg PO BID #90 cap 09/22/18 [Rx Confirmed ] Melatonin [Melatonin Maximum Strengt] 10 mg PO DAILY 09/19/19 [History Confirmed 09/19/19] PMH/Surg Hx/FS Hx/Imm Hx Previously Healthy: Yes - Surgical History Surgical History: Yes Surgery Procedure, Year, and Place: Right Knee replacement - Family History Known Family History: Negative: Cardiac Disease, Hypertension, Diabetes - Social History Alcohol Use: Weekly Substance Use Type: None Smoking Status (MU): Never Smoked Tobacco Review of Systems All Other Systems Reviewed And Are Negative: Yes Constitutional: Positive: Fatigue Skin: Positive: Negative Eyes: Positive: Negative ENT: Positive: Negative Respiratory: Positive: Negative Cardiovascular: Positive: Negative Gastrointestinal: Positive: Other - see hpi Genitourinary: Positive: Other - see hpi Motor: Positive: Negative Neurovascular: Positive: Negative Musculoskeletal: Positive: Negative Neurological/Mental Status: Positive: Negative Psychological: Positive: Negative Is Patient Immunocompromised?: No Physical Exam Triage Information Reviewed: Yes Appearance: Well-Nourished - lying back on stretcher. Looks tired, uncomfortable with exam, but nad Vital Signs: Initial Vital Signs Temp 100.9 F 09/19/19 17:44 Pulse 118 09/19/19 17:44 Resp 16 09/19/19 17:44 BP 150/88 09/19/19 17:44 Pulse Ox 96 09/19/19 17:44 Vital Signs Reviewed: Yes Eye Exam: Normal ENT Exam: Normal Neck exam: Normal Respiratory Exam: Normal Respiratory: Positive: Chest non-tender, Lungs clear, Normal breath sounds, No respiratory distress, No accessory muscle use Cardiovascular Exam: Other - HR 100 - 110's, regular Nondiaphoretic. Cardiovascular: Positive: Pulses Normal, Brisk Capillary Refill Abdominal Exam: Other - + bs, quiet. Tender throughout abdomen, worse RLQ. Voluntary guarding, no rebound. No cvat. Mild pelvic discomfort, directed toward lower R abd. No rash noted Bowel Sounds: Positive: Hypoactive Musculoskeletal Exam: Normal - moves x 4 ext's gait steady, but looks uncomfortable Neurological Exam: Normal - grossly intact Psychological Exam: Normal - nad Skin Exam: Normal - nondiaphoretic no visible or reported rash Course/Dx - Course Course Of Treatment: Reviewed urine dip with pt. Reviewed coa / tx plan. Recommend ED evaluation and treatment. EMS declined, spouse will drive her to the ED. Advised not to eat or drink en route. ED notified, spoke with Elza FLOR. - Diagnoses Provider Diagnosis: Acute abdominal pain Discharge ED - Sign-Out/Discharge Documenting (check all that apply): Patient Departure All imaging exams completed and their final reports reviewed: No Studies - Discharge Plan Condition: Guarded Disposition: HOME-RECOMMEND TO ED Patient Education Materials: Acute Abdominal Pain (ED) Referrals: Amanda Reyes MD [Primary Care Provider] - Additional Instructions: Please go directly to the Emergency Department. Stop and call 911 if [address]. Do not eat or drink anything on the way to the Emergency Department. When you are feeling better, make sure that you follow up with your primary care physician. Have your urine checked to make sure that the trace blood is no longer present. - Billing Disposition and Condition Condition: GUARDED Disposition: Home-Recommend to ED
--- NOTE | 2019-09-22 09:06 | UC ---
- Progress Note Progress Note: Urine culture from September 19, 2019 comes back as positive for strep group B 10-25 ,000. Patient went to the emergency Department on the same date and was treated for acute appendicitis and discharged from the hospital. Urinary strep group B does not always have to be treated. Urinary strep group B is treated if the person is symptomatic. Nursing to call patient find out if they have symptoms for urinary tract infection. If they do not there is no need to treat with an antibiotic if they do have urinary tract infection symptoms we will need to treat with an antibiotic. Course/Dx - Diagnoses Provider Diagnoses: Acute abdominal pain Discharge ED - Sign-Out/Discharge Documenting (check all that apply): Patient Departure All imaging exams completed and their final reports reviewed: No Studies - Discharge Plan Condition: Guarded Disposition: HOME-RECOMMEND TO ED Patient Education Materials: Acute Abdominal Pain (ED) Referrals: Amanda Reyes MD [Primary Care Provider] - Additional Instructions: Please go directly to the Emergency Department. Stop and call 911 if [address]. Do not eat or drink anything on the way to the Emergency Department. When you are feeling better, make sure that you follow up with your primary care physician. Have your urine checked to make sure that the trace blood is no longer present. - Billing Disposition and Condition Condition: GUARDED Disposition: Home-Recommend to ED
== END 2019-09-19 18:18 | disposition home health service (06) ==
LOC: UCEAST 17:20
DX: R10.31 Right lower quadrant pain (principal); R14.0 Abdominal distension (gaseous); R11.0 Nausea; Z96.651 Presence of right artificial knee joint; Z88.6 Allergy status to analgesic agent
CPT/HCPCS: 81003; 87077; 87086; 99211; G0463

== ENCOUNTER 2019-09-19 18:32 | Observation (INO) | payer OTHER ==
--- NOTE | 2019-09-19 20:12 | ED ---
GI/ HPI - HPI Summary HPI Summary: 58 year old female presents with abd pain today. States it started last night. She denies any nausea vomiting. She admits to decreased appetite. Pain is worse with certain movements. She denies any urinary symptoms. she admits to constipation but took a laxative this morning and had three BM with no change in pain. No diarrhea. She has had no previous abdominal surgeries. No medical conditions. took some Tylenol this morning. - History of Current Complaint Chief Complaint: EDAbdPain Time Seen by Provider: 09/19/19 20:03 Stated Complaint: ABD PAIN PER PT Hx Last Menstrual Period: postmenapausal Pain Intensity: 8 - Additional Pertinent History Primary Care Physician: SONG - Allergy/Home Medications Allergies/Adverse Reactions: Allergies Allergy/AdvReac Type Severity Reaction Status Date / Time ibuprofen [From Advil] Allergy Intermediate Eyes Verified 09/19/19 18:40 Itchy/Swollen/Red/Watery Home Medications: Home Medications Acetaminophen TAB* [Tylenol TAB*] 975 mg PO Q8HR tab 09/22/18 [Rx Confirmed ] Docusate CAP* [Colace Cap*] 100 mg PO BID #90 cap 09/22/18 [Rx Confirmed ] Melatonin [Melatonin Maximum Strengt] 10 mg PO DAILY 09/19/19 [History Confirmed 09/19/19] PMH/Surg Hx/FS Hx/Imm Hx Endocrine/Hematology History: Denies: Hx Anticoagulant Therapy Respiratory History: Denies: Hx Asthma Musculoskeletal History: Reports: Hx Arthritis - osteoarthritis bilat knees Denies: Hx Rheumatoid Arthritis, Hx Osteoporosis Sensory History: Denies: Hx Contacts or Glasses, Hx Hearing Aid Opthamlomology History: Denies: Hx Contacts or Glasses Psychiatric History: Reports: Hx Depression - 20 years ago - Cancer History Hx Chemotherapy: No Hx Radiation Therapy: No - Surgical History Surgery Procedure, Year, and Place: Right Knee replacement Infectious Disease History: No Infectious Disease History: Denies: Traveled Outside the [place] in Last 30 Days - Family History Known Family History: Negative: Cardiac Disease, Hypertension, Diabetes - Social History Alcohol Use: Weekly Substance Use Type: Reports: None Smoking Status (MU): Never Smoked Tobacco Review of Systems Negative: Fever Negative: Chest Pain Negative: Shortness Of Breath Positive: Abdominal Pain. Negative: Vomiting, Diarrhea, Nausea All Other Systems Reviewed And Are Negative: Yes Physical Exam Triage Information Reviewed: Yes Vital Signs On Initial Exam: Initial Vitals Temp Pulse Resp BP Pulse Ox 98.7 F 126 19 167/115 97 09/19/19 18:36 09/19/19 18:36 09/19/19 18:36 09/19/19 18:36 09/19/19 18:36 Vital Signs Reviewed: Yes Appearance: Positive: Well-Appearing Skin: Positive: Warm, Dry Head/Face: Positive: Normal Head/Face Inspection Eyes: Positive: Normal, Conjunctiva Clear ENT: Positive: Pharynx normal Respiratory/Lung Sounds: Positive: Clear to Auscultation, Breath Sounds Present Cardiovascular: Positive: Normal, RRR Abdomen Description: Positive: Soft, Other: - tenderness in RLQ Bowel Sounds: Positive: Present Musculoskeletal: Positive: Normal Neurological: Positive: Normal Psychiatric: Positive: Normal Procedures - Sedation Patient Received Moderate/Deep Sedation with Procedure: No Diagnostics - Vital Signs Vital Signs Temp Pulse Resp BP Pulse Ox 09/19/19 18:36 98.7 F 126 19 167/115 97 - Laboratory Result Diagrams: 09/19/19 20:40 09/19/19 20:40 Lab Statement: Any lab studies that have been ordered have been reviewed, and results considered in the medical decision making process. - CT abd CT Interpretation Completed By: Radiologist Summary of CT Findings: 1. Appendicitis. There is a rounded fluid collection at the appendix/cecal junction which may reflect focally dilated appendix or possibly a small periappendiceal abscess measuring 14 mm. 2. Mild fatty infiltration of the liver. 3. Colonic diverticulosis without diverticulitis. - Ultrasound No standard instances Ultrasound Interpretation Completed By: Radiologist Summary of Ultrasound Findings: IMPRESSION: 1. Small posterior fibroid measuring 10 x 10 x 7 mm. 2. Otherwise negative pelvic sonogram. Re-Evaluation - Re-Evaluation First Eval Re-Evaluation Time: 21:34 Comment: pain still present Second Eval Re-Evaluation Time: 23:10 Comment: pain improved GIGU Course/Dx - Course Course Of Treatment: 58 year old female presents with abd pain today. States it started last night. She denies any nausea vomiting. She admits to decreased appetite. Pain is worse with certain movements. She denies any urinary symptoms. she admits to constipation but took a laxative this morning and had three BM with no change in pain. No diarrhea. She has had no previous abdominal surgeries. No medical conditions. took some Tylenol this morning. On exam tenderness in the right lower quadrant. wbc 12. crp elevated. transvaginal ultrasound shows fibriod. CT abd shows appendicitis. started on zosyn. discussed with dr garcia who agrees to admit. - Diagnoses Differential Diagnoses - Female: Appendicitis, Gastroenteritis (Viral), Ovarian Cyst Provider Diagnoses: Appendicitis - Critical Care Time Critical Care Statement: Critical care time is provided exclusive of any time spent performing procedures. Discharge ED - Sign-Out/Discharge Documenting (check all that apply): Patient Departure - Discharge Plan Condition: Stable Disposition: ADMITTED TO [facility] - Billing Disposition and Condition Condition: STABLE Disposition: Admitted to [facility]
[2019-09-19 20:55] LABS: ABS Lymphocytes 0.6 10^3/ul (1.0-4.8); ABS Monocytes 0.3 10^3/ul (0-0.8); ABS Neutrophils 11.1 10^3/ul (1.5-7.7); Eosinophil % 0.1 %; Hematocrit 43 % (35-47); Hemoglobin 14.6 g/dL (12.0-16.0); Lymphocyte % 4.7 %; Mean Corpuscular HGB Conc 34 g/dL (31-36); Mean Corpuscular Hemoglobin 31 pg (27-31); Mean Corpuscular Volume 91 fL (80-97); Mean Platelet Volume 7.9 fL (7.4-10.4); Platelet Count 218 10^3/uL (150-450); Red Blood Count 4.69 10^6 /uL (3.70-4.87); Red Cell Distribution Width 13 % (10-15)
[2019-09-19 21:10] LABS: ALT 20 U/L (7-52); AST 13 U/L (13-39); Albumin 4.1 g/dL (3.2-5.2); Albumin/Globulin Ratio 1.4 (1-3); Alkaline Phosphatase 82 U/L (34-104); Anion Gap 6 mmol/L (2-11); BUN/Creatinine Ratio 14.3 (8-20); Blood Urea Nitrogen 9 mg/dL (6-24); C Reactive Protein 153.89 mg/L (<8.01); CO2 Carbon Dioxide 26 mmol/L (22-32); Calcium 8.8 mg/dL (8.6-10.3); Chloride 105 mmol/L (101-111); EGFR African American 117.9 (>60); EGFR Non-African American 97.4 (>60); Globulin 2.9 g/dL (2-4); Glucose 126 mg/dL (70-100); Potassium 3.4 mmol/L (3.5-5.0); Sodium 137 mmol/L (135-145)
[2019-09-19] MEDS ORDERED: Ketorolac INJ* 30 MG/ML 1 ML VIAL IV PUSH ONE (21:34)
[2019-09-19] MEDS ORDERED: Iohexol 300* (CONTRAST) 10 ML SDV IV ONE (22:32)
[2019-09-19] MEDS ORDERED: Piperacillin/Tazobac ADVAN(*) 3.375 GM in NS 0.9% 100 ML* 100 ML IVPB ONE (23:19)
[2019-09-19] MEDS ORDERED: NS 0.9% 1000 ML** 1,000 ML IV ONE (23:29)
[2019-09-19] MEDS ORDERED: Ondansetron INJ* 2 MG/ML VIAL IV PRN (23:33)
[2019-09-19] MEDS ORDERED: NS 0.9% 1000 ML** 1,000 ML IV SCH (23:45)
[2019-09-20] MEDS ORDERED: Zosyn per Pharmacy* NOTE FOLLOW UP PRN (00:24)
[2019-09-20] MEDS: Morphine INJ* 2 MG/ML 1 ML SYRINGE (TWO MG - NEW SYRINGE VERSION) IV PRN ×2 (02:42→06:16)
[2019-09-20] MEDS ORDERED: ZOSYN 3.375 GM Q8H per EXTENDED INFUSION IVPB SCH ×2 (04:00)
[2019-09-20] MEDS ORDERED: Ketorolac INJ* 15 MG/ML 1 ML VIAL IV PUSH PRN (07:40)
--- NOTE | 2019-09-20 07:40 | HP ---
H&P (Free Text) History and Physical: CC: RLQ abd pain HPI: 58 yo F with no significant PMH presents with RLQ abd pain that started 1 am on Monday 09/18. She felt and slept well up to that point. She notes similar pains in past but those resolved over hours. Pain became progressively severe and she took Tylenol without relief. She last ate Thursday night. Thought constipation and took laxative with +BM. No dysuria/hematuria. No N/V /D. Decr appetite. Pain worse with mov't and can't stand upright due to pain. As pain persisted she presented to the [facility] and was transfered to [facility]. Had improvement with narcotics/Toradol. CT showed appendicitis. PMH: None PSH: Lipoma excision R abdomen R TKR 2019 Meds: Melatonin All: "brown coating on Advil tablets" causes hay fever like symptoms SH: No tob; +EtOH (2 drinks/wk); no drugs; works at [employer] FH: HTN ROS: Notable for above +/-; otherwise complete review negative. PE: Vital Signs Temp 99.3 F 09/20/19 04:06 Pulse 101 09/20/19 04:06 Resp 16 09/20/19 07:07 BP 105/64 09/20/19 04:06 Pulse Ox 95 09/20/19 04:06 Gen: NAD; lying in bed. HEENT: NCAT; EOMI Lungs: CTA Heart: reg, s1s2; no murmur Abd: healed scar R abdomen; soft; tender in RLQ +Rovsing. Ext: warm; no C/C/E; 2+DP pulses B Intake & Output 09/19/19 09/20/19 09/20/19 18:59 06:59 18:59 Intake Total 1000 Balance 1000 Weight 200 lb 200 lb Intake: IV Fluids 1000 Oral 0 Other: # Voids 1 Laboratory Results - last 24 hr 09/19/19 09/19/19 20:40 20:40 WBC 12.0 H RBC 4.69 Hgb 14.6 Hct 43 MCV 91 MCH 31 MCHC 34 RDW 13 Plt Count 218 MPV 7.9 Neut % (Auto) 92.3 Lymph % (Auto) 4.7 [place] % (Auto) 2.8 Eos % (Auto) 0.1 Baso % (Auto) 0.1 Absolute Neuts (auto) 11.1 H Absolute Lymphs (auto) 0.6 L Absolute Monos (auto) 0.3 Absolute Eos (auto) 0.0 Absolute Basos (auto) 0.0 Absolute Nucleated RBC 0.0 Nucleated RBC % 0.0 Sodium 137 Potassium 3.4 L Chloride 105 Carbon Dioxide 26 Anion Gap 6 BUN 9 Creatinine 0.63 Est GFR ( Amer) 117.9 Est GFR (Non-Af Amer) 97.4 BUN/Creatinine Ratio 14.3 Glucose 126 H Calcium 8.8 Total Bilirubin 0.50 AST 13 ALT 20 Alkaline Phosphatase 82 C-Reactive Protein 153.89 H Total Protein 7.0 Albumin 4.1 Globulin 2.9 Albumin/Globulin Ratio 1.4 Lipase < [address] images reviewed. Assessment: 58 yo F with acute appendicitis Plan: Laparoscopic appendectomy later today. NPO. IVF. Cont Zosyn.
[2019-09-20] MEDS ORDERED: Bupivacaine 0.5%* 50 ML MDV VIAL ONE (08:28)
[2019-09-20] MEDS ORDERED: Midazolam* 1 MG/ML 2 ML VIAL (2 MG) ONE (09:08)
[2019-09-20] MEDS ORDERED: fentaNYL* 50 MCG/ML 5 ML VIAL (250 MCG VIAL) ONE (09:08)
[2019-09-20] MEDS ORDERED: Propofol* 10 MG/ML 20 ML BTL ONE (09:08)
[2019-09-20] MEDS ORDERED: Lidocaine 2% PF * 5 ML VIAL ONE (09:08)
[2019-09-20] MEDS ORDERED: Rocuronium* 10 MG/ML VIAL ONE (09:09)
[2019-09-20] MEDS ORDERED: Succinylcholine* 20 MG/ML 10 ML VIAL ONE (09:11)
[2019-09-20] MEDS ORDERED: HYDROmorphone INJ1* 1 MG/ML SYRINGE IV PRN (09:17)
[2019-09-20] MEDS ORDERED: PROCHLORPERAZINE INJ 5 MG/ML 2 ML VIAL IV PRN (09:17)
[2019-09-20] MEDS ORDERED: Naloxone* 0.4 MG/ML 1 ML VIAL IV PRN (09:17)
[2019-09-20] MEDS ORDERED: Acetaminophen TAB* 325 MG PO PRN (09:17)
[2019-09-20] MEDS ORDERED: oxyCODONE TAB* 5 MG TAB PO PRN (09:17)
[2019-09-20] MEDS ORDERED: diPHENhydraMINE IV* 50 MG/ML 1 ml VIAL (BENADRYL) IV PRN (09:17)
[2019-09-20] MEDS ORDERED: ceFOXitin 2 GM IVPREMIX* 2 GM/50 ML BAG ONE (09:18)
[2019-09-20] MEDS ORDERED: Dexamethasone IV* 4 MG/ML 1 ML (4 MG) ONE (09:50)
[2019-09-20] MEDS ORDERED: Neostigmine Methylsulfate* 3 MG/3 ML SYRINGE ONE (09:50)
[2019-09-20] MEDS ORDERED: Ondansetron INJ* 2 MG/ML VIAL ONE (09:50)
[2019-09-20] MEDS ORDERED: Ketorolac INJ* 30 MG/ML 1 ML VIAL ONE (09:50)
[2019-09-20] MEDS ORDERED: Glycopyrrolate IV* 0.2 MG/ML 1 ML VIAL ONE (09:50)
[2019-09-20] MEDS ORDERED: HYDROmorphone INJ1* 1 MG/ML SYRINGE ONE (09:51)
--- NOTE | 2019-09-20 10:48 | BRIEFOPN ---
Brief Operative/Procedure Note - Operation Details Pre-Op Diagnosis: Acute appendicitis Post-Op Diagnosis: Acute appendicitis Procedures: Laparoscopic appendectomy Surgeon(s)/Proceduralists: Dr. Rodrigez Anesthesia: GETA Estimated Blood Loss: Scant Findings: As above Specimen(s)/Culture(s) Description: Appendix Complications: None Miscellaneous Procedure Notes: None
[2019-09-20] MEDS ORDERED: PROCHLORPERAZINE INJ 5 MG/ML 2 ML VIAL ONE (11:04)
--- NOTE | 2019-09-20 11:43 | DS ---
Admit date: 09/19/2019 Discharge date: 09/20/2019 Admit diagnosis: Acute appendicitis Discharge diagnosis: Acute appendicitis PEX General: Alert, in NAD. Integumentary: No rashes, jaundice, petechia. HEENT: Oropharynx clear. Trachea midline. PERRLA. Heart: RRR, no MRG. Lungs: CTAB, no WRR. ABD: BS present. Soft, nondistended. Tender around incisions, which are C/D/I. Extremities: Distal pulses intact bilaterally. No edema. Calves soft and nontender. Labs: Unremarkable. Procedure: Laparoscopic appendectomy Hospital course: Presented with ABD to ED on 09/19/2019 and diagnosed with acute appendicitis. Admitted to [facility]. The next day, she was taken for the above named procedure, which was tolerated well. After appropriately recovering from anesthesia, she was discharged from PACU. Instructions were given to the pt regarding diet, meds, activity, post op follow up, and care for incisions. All questions were answered. Discharged home in stable condition on 09/20/2019.
--- NOTE | 2019-09-20 12:35 | OP ---
OPERATIVE REPORT: DATE OF OPERATION: 09/20/19 DATE OF : 62 SURGEON: Marbin Rodrigez MD PRE-OP DIAGNOSIS: Appendicitis. POST-OP DIAGNOSIS: Appendicitis. OPERATIVE PROCEDURE: Laparoscopic appendectomy. INDICATIONS FOR PROCEDURE: Appendicitis. Risks including, but not limited to bleeding, infection, injury to intraabdominal contents including the bowel, others explained to the patient, who seemed to understand and agreed to the procedure and all questions were answered. DESCRIPTION OF PROCEDURE: The patient was taken to the operating room, placed supine and preoperative antibiotics have been given. After the successful induction of general endotracheal anesthesia, the abdomen was prepped and draped in a sterile fashion. A time-out was performed indicating correct patient, correct procedure. A left lower quadrant 5-mm trocar, Optiview bladeless was placed under direct visualization of the camera. A 12-mm umbilical and 5-mm suprapubic trocar was placed. The patient was placed in Trendelenburg position, titled slightly towards her left. An inflamed appendix was noted. Appendix was gently dissected free from the surrounding tissue, the base was isolated, divided with a stapler along with the mesoappendix. A lowry/gold load on the bowel, silver/sigala load on the mesoappendix. EBL minimal. Hemostasis was intact. The appendix was placed into an Endobag and removed through the umbilical port site. The abdomen was scanned. Pelvis was aspirated of any fluid. No abscess was noted. The right lower quadrant was irrigated and aspirated dry. Bowel was scanned, no obvious injury was noted. Pneumoperitoneum was brought down to 5. The insufflation was shut off and then the remaining gas was aspirated through the suction on the filter. Trocars were removed. The skin was closed with 3-0 Monocryl. Glue was applied to the skin. She tolerated the procedure well. [id number]/[facility] #: [id number] [facility] MEDICAL CENTERLalita
[2019-09-20 12:37] VITALS: BP 131/86
== END 2019-09-20 13:05 | disposition home or self-care (01) ==
LOC: ED 18:32 → SSU 23:36
PROVIDERS: ADMIT Surgery; ATTEND Surgery
DX: K35.80 Unspecified acute appendicitis (principal); F32.9 Major depressive disorder, single episode, unspecified; Z96.651 Presence of right artificial knee joint; Z79.899 Other long term (current) drug therapy; Z88.8 Allergy status to other drugs, medicaments and biological substances
CPT/HCPCS: 36415; 74177; 76830; 80053; 83690; 85025; 86140; 88304; 96365; 96366; 96375; 99284; C1776; G0378; J0330; J0694; J0780; J1100; J1170; J1885; J2250; J2270; J2405; J2543; J2704; J2710; J3010; J3490; Q9967